=== PATIENT | female | born 2000 | race Two or more races ===

== ENCOUNTER 2025-03-21 15:11 | Emergency (ER) | payer OTHER ==
[~2025-03-21] VITALS: Ht 160 cm; Wt 98.9 kg
[2025-03-21 18:51] LABS: BASO % 0.2 % (0.1-1.2); EOS # 0.03 (0.04-0.54); EOS % 0.2 % (0.7-7.0); HEMATOCRIT 36.7 % (34.1-44.9); LYMPH # 2.35 (1.18-3.74); LYMPH % 17.7 % (19.3-53.1); MEAN CORPUSCULAR HEMOGLOBIN 29.5 pg (25.6-32.2); MONO # 0.73 (0.24-0.82); MONO % 5.5 % (4.7-12.5); NEUT # 10.06 (1.56-6.13); NEUT % 76.1 % (34.0-71.1); PLATELET COUNT 285 K/uL (163-369); RED BLOOD COUNT 4.41 M/uL (3.93-5.22); RED CELL DISTRIBUTION WIDTH 12.8 % (11.6-14.4)
== END 2025-03-21 20:09 | disposition home or self-care (01) ==
LOC: ER 15:11
PROVIDERS: General Practice
DX: O20.8 Other hemorrhage in early pregnancy (principal); Z3A.09 9 weeks gestation of pregnancy

== ENCOUNTER 2025-04-10 11:14 | Emergency (ER) | payer OTHER ==
[~2025-04-10] VITALS: Ht 162.6 cm; Wt 103.4 kg
[2025-04-10 13:23] LABS: BASO % 0.3 % (0.1-1.2); EOS # 0.05 (0.04-0.54); EOS % 0.5 % (0.7-7.0); HEMATOCRIT 35.7 % (34.1-44.9); HEMOGLOBIN 12.6 g/dL (11.2-15.7); LYMPH # 1.93 (1.18-3.74); LYMPH % 18.1 % (19.3-53.1); MEAN CORPUSCULAR HEMOGLOBIN 29.4 pg (25.6-32.2); MONO % 5.6 % (4.7-12.5); NEUT # 8.05 (1.56-6.13); NEUT % 75.2 % (34.0-71.1); PLATELET COUNT 257 K/uL (163-369); RED BLOOD COUNT 4.28 M/uL (3.93-5.22); RED CELL DISTRIBUTION WIDTH 12.6 % (11.6-14.4)
== END 2025-04-10 17:00 | disposition home or self-care (01) ==
LOC: ER 11:22
PROVIDERS: General Practice
DX: O20.8 Other hemorrhage in early pregnancy (principal); Z3A.11 11 weeks gestation of pregnancy; N93.9 Abnormal uterine and vaginal bleeding, unspecified